=== PATIENT | male | born 1950 | race Caucasian/White ===

== ENCOUNTER 2023-02-23 17:30 | Inpatient (IN) ==
[2023-02-23] MEDS ORDERED: NS 1,000 ML IV 1,000 ML IV ONE (17:39)
[2023-02-23] MEDS ORDERED: ZOFRAN INJ 4 MG VIAL IVP PRN (17:51)
[2023-02-23 21:53] LABS: BASOPHILS # (AUTO) 0.1 X10^3/uL (0.0-0.1); BASOPHILS % (AUTO) 0.7 % (0.2-1.0); EOSINOPHILS # (AUTO) 0.3 x10^3/uL (0.0-0.2); EOSINOPHILS % (AUTO) 2.4 % (0.9-2.9); HEMOGLOBIN 13.7 g/dL (13.5-18.0); LYMPHOCYTES # (AUTO) 3.6 X10^3/uL (1.3-2.9); LYMPHOCYTES % (AUTO) 27.9 % (21.0-51.0); MEAN CORPUSCULAR HEMOGLOBIN 30.9 pg (27.0-34.0); MEAN CORPUSCULAR HGB CONC 34.3 g/dL (33.0-35.0); MEAN CORPUSCULAR VOLUME 90.1 fL (80.0-100.0); MEAN PLATELET VOLUME 9.3 fL (7.4-11.0); MONOCYTES # (AUTO) 1.1 x10^3/uL (0.3-0.8); MONOCYTES % (AUTO) 8.4 % (0.0-13.0); NEUTROPHILS # (AUTO) 7.8 x10^3/uL (2.2-4.8); NEUTROPHILS % (AUTO) 60.6 % (42.0-75.0); PLATELET COUNT 169 X10^3/uL (150.0-450.0); RED BLOOD COUNT 4.44 X10^6/uL (4.7-6.0); RED CELL DISTRIBUTION WIDTH 13.8 % (11.6-16.5); WHITE BLOOD COUNT 12.9 X10^3/uL (3.6-10.0)
[2023-02-23 22:06] LABS: ALANINE AMINOTRANSFERASE 21 Units/L (12-78); ALKALINE PHOSPHATASE 73 Units/L (46-116); ASPARTATE AMINO TRANSFERASE 20 Units/L (15-37); BLOOD UREA NITROGEN 26 mg/dL (7-18); CALCIUM 9.7 mg/dL (8.5-10.1); CARBON DIOXIDE 29.3 mmol/L (21-32); CHLORIDE 100 mmol/L (98-107); CREATININE 2.13 mg/dL (0.70-1.30); GLUCOSE 98 mg/dL (65-99); POTASSIUM 4.1 mmol/L (3.5-5.1); SODIUM 137 mmol/L (136-145); TOTAL PROTEIN 7.1 g/dL (6.4-8.2); eGFR NON BLACK RACES 33 (>60)
[2023-02-23] MEDS ORDERED: NS 1,000 ML IV 1,000 ML ONE ×2 (22:09→23:47)
[2023-02-23] MEDS: MAXIPIME VIAL 1 GRAM 1 G in NS 50 ML IV 50 ML IV SCH (23:30)
[2023-02-24] MEDS: NS 1,000 ML IV 1,000 ML IV SCH (00:42)
[2023-02-24 05:13] LABS: BILIRUBIN,URINE NEGATIVE (NEGATIVE); BLOOD/HEMOGLOBIN,URINE 4+ (NEGATIVE); GLUCOSE, URINE NEGATIVE (NEGATIVE); KETONES,URINE NEGATIVE (NEGATIVE); LEUKOCYTE ESTERASE ,URINE 3+ (NEGATIVE); NITRITES,URINE POSITIVE (NEGATIVE); PROTEIN,URINE 2+ (NEGATIVE); UROBILINOGEN,URINE NORMAL (NORMAL)
[2023-02-24 05:22] LABS: APPEARANCE,URINE HAZY (CLEAR); BACTERIA,URINE 1+ /HPF (NEGATIVE); COLOR,URINE YELLOW (YELLOW); SQUAMOUS EPITHELIAL CELL,UR FEW /HPF (NEGATIVE)
[2023-02-24 05:29] VITALS: BMI 28.3
[2023-02-24 06:05] LABS: BASOPHILS # (AUTO) 0.1 X10^3/uL (0.0-0.1); BASOPHILS % (AUTO) 0.5 % (0.2-1.0); EOSINOPHILS # (AUTO) 0.3 x10^3/uL (0.0-0.2); EOSINOPHILS % (AUTO) 2.5 % (0.9-2.9); HEMATOCRIT 38.3 % (42.0-54.0); HEMOGLOBIN 13.1 g/dL (13.5-18.0); LYMPHOCYTES # (AUTO) 4.3 X10^3/uL (1.3-2.9); LYMPHOCYTES % (AUTO) 37.5 % (21.0-51.0); MEAN CORPUSCULAR HEMOGLOBIN 31.1 pg (27.0-34.0); MEAN CORPUSCULAR HGB CONC 34.2 g/dL (33.0-35.0); MEAN CORPUSCULAR VOLUME 90.9 fL (80.0-100.0); MEAN PLATELET VOLUME 9.2 fL (7.4-11.0); MONOCYTES # (AUTO) 1.1 x10^3/uL (0.3-0.8); MONOCYTES % (AUTO) 10.1 % (0.0-13.0); NEUTROPHILS # (AUTO) 5.7 x10^3/uL (2.2-4.8); NEUTROPHILS % (AUTO) 49.4 % (42.0-75.0); PLATELET COUNT 148 X10^3/uL (150.0-450.0); RED BLOOD COUNT 4.21 X10^6/uL (4.7-6.0); RED CELL DISTRIBUTION WIDTH 13.6 % (11.6-16.5); WHITE BLOOD COUNT 11.4 X10^3/uL (3.6-10.0)
[2023-02-24] MEDS: SYNTHROID 100 mcg TAB PO SCH (06:06)
[2023-02-24 06:27] LABS: ALANINE AMINOTRANSFERASE 17 Units/L (12-78); ALBUMIN 3.5 g/dL (3.4-5.0); ALKALINE PHOSPHATASE 63 Units/L (46-116); ASPARTATE AMINO TRANSFERASE 16 Units/L (15-37); BLOOD UREA NITROGEN 27 mg/dL (7-18); CALCIUM 9.3 mg/dL (8.5-10.1); CARBON DIOXIDE 28.9 mmol/L (21-32); CHLORIDE 105 mmol/L (98-107); CREATININE 1.86 mg/dL (0.70-1.30); GLUCOSE 99 mg/dL (65-99); POTASSIUM 4.3 mmol/L (3.5-5.1); SODIUM 141 mmol/L (136-145); TOTAL PROTEIN 6.4 g/dL (6.4-8.2); eGFR NON BLACK RACES 38 (>60)
[2023-02-24] MEDS ORDERED: TOPROL XL PO SCH (09:00)
[2023-02-24] MEDS ORDERED: ZYLOPRIM PO SCH (09:00)
[2023-02-24] MEDS ORDERED: PAXIL PO SCH (09:00)
[2023-02-24] MEDS ORDERED: PROTONIX TAB 40 MG PO SCH (09:00)
[2023-02-24] MEDS ORDERED: PAROXETINE HCL 37.5 MG PO SCH (09:00)
[2023-02-24] MEDS ORDERED: PATIENT'S HOME MEDICATION (Trospium 20 mg Tablet) PO SCH (09:00)
[2023-02-24] MEDS ORDERED: SYNTHROID 100 mcg TAB PO SCH (09:00)
[2023-02-24] MEDS ORDERED: PATIENT'S HOME MEDICATION PO SCH (09:00)
[2023-02-24] MEDS ORDERED: LIPITOR TAB 40 MG PO SCH (09:00)
[2023-02-24] MEDS: PROTONIX TAB 40 MG PO SCH (09:29)
[2023-02-24] MEDS: ZYLOPRIM PO SCH (09:29)
[2023-02-24] MEDS: LIPITOR TAB 40 MG PO SCH (09:29)
[2023-02-24] MEDS: MAXIPIME VIAL 1 GRAM 1 G in NS 50 ML IV 50 ML IV SCH ×2 (09:29→21:10)
[2023-02-24] MEDS: TOPROL XL PO SCH (09:29)
[2023-02-24] MEDS: PATIENT'S HOME MEDICATION PO SCH ×3 (09:30→21:10)
[2023-02-24] MEDS: LOVENOX INJ 40 MG SYR SC SCH (09:33)
--- NOTE | 2023-02-24 18:06 | DR.H&P ---
H&P - History & Physical for Day of: H&P Date: 02/23/23 - Chief Complaint Chief Complaint: UTI - History of Present Illness History of Present Illness: PT IS 72 WM, DIRECT ADMIT PER DR DELA CRUZ FOR MULTI- DRUG RESISTANT UTI. PT REPORTS PMH OF BLADDER CANCER IN REMISSION, RENAL CA WITH RIGHT NEPHRECTOMY AND PROTASTE CANCER WITH PROTATECTOMY. PT'S HOME MEDICATION HAVE BEEN REVIEWED. PLAN TO OBTAIN OUTPT URINE CULTURE AND REPEAT UC ON ADMISSIO N. - Past Medical History Additional Medical History: BLADDER CANCER. PROSTATE CANCER. RENAL CANCER - Past Surgical History Surgical History: Abdominal Surgery, Appendectomy Additional Surgical History: RIGHT NEPHRECTOMY - Family History Family Medical History: Diabetes Mellitus, Heart Failure - Social History Does patient currently use any type of tobacco product: No Have you used tobacco products in the last 12 months: No Type of Tobacco Use: Cigarettes How many years tobacco product used: 13 Does any household member use tobacco: No Alcohol Use: None Drug Use: Prescription Drugs - Review of Systems Constitutional: Malaise Eyes: No Symptoms Reported ENT: No Symptoms Reported Gastrointestinal: No Symptoms Reported Genitourinary: Dysuria, Frequency Musculoskeletal: Back Pain Skin: No Symptoms Reported Neurological: No Symptoms Reported - Physical Exam Vital Signs: Vital Signs Temperature 97.6 F Pulse Rate [Right Brachial] 59 Respiratory Rate 18 Blood Pressure [Left Arm] 129/60 O2 Sat by Pulse Oximetry 98 Oriented: Normal Eyes: Normal Ear: Normal Nose: Normal Throat: Normal Respiratory: Clear Throughout Cardiovascular: Normal. negative: Edema : Normal Auscultation: Bowel Sounds: Normal Palpation: Normal Tenderness: Normal, Suprapubic, Mild Skin: Decreased Turgur Musculoskeletal: Normal Psychiatric: Normal Mood Description: Calm Speech Pattern: Clear, Appropriate - Assessment/Plan (1) Drug (multiple) resistant infection Status: Acute Plan: ADMIT, BLOOD AND URINE CULTLURE ON ADMISSION. VERIFY HOME MEDICATION. BP CONTROL. GENTLE IV HYDRATION. CEFEPIME IV (2) Urinary tract infection Status: Acute (3) Hypertension Status: Acute (4) Hypothyroid Status: Acute - Allergies Allergies/Adverse Reactions: Allergies Allergy/AdvReac Type Severity Reaction Status Date / Time ampicillin Allergy Verified 02/23/23 20:56 ciprofloxacin [From Cipro] Allergy Verified 02/23/23 20:56 doxycycline Allergy Verified 02/23/23 20:56 oxycodone Allergy Verified 02/23/23 20:56 sertraline [From Zoloft] Allergy Verified 02/23/23 20:56 Sulfa (Sulfonamide Allergy Verified 02/23/23 20:56 Antibiotics) - Medications Home Medications: Home Medications Medication Instructions Recorded Confirmed allopurinol 100 mg tablet 100 mg PO DAILY GOUT prevention 02/24/23 02/24/23 atorvastatin 40 mg tablet 40 mg PO DAILY 02/24/23 02/24/23 diclofenac sodium 50 mg 50 mg PO BID 02/24/23 02/24/23 tablet,delayed release levothyroxine 100 mcg tablet 100 mcg PO DAILY 02/24/23 02/24/23 metoprolol succinate 50 mg 50 mg PO DAILY 02/24/23 02/24/23 tablet,extended release 24 hr pantoprazole 40 mg tablet,delayed 40 mg PO DAILY 02/24/23 02/24/23 release paroxetine HCl 37.5 mg 37.5 mg PO QDAY 02/24/23 02/24/23 tablet,extended release 24 hr trospium 20 mg tablet 20 mg PO BID 02/24/23 02/24/23
[2023-02-25] MEDS: NS 1,000 ML IV 1,000 ML IV SCH ×2 (01:08→21:15)
[2023-02-25] MEDS ORDERED: TYLENOL 325 MG TAB PO PRN (04:50)
[2023-02-25] MEDS: SYNTHROID 100 mcg TAB PO SCH (06:14)
[2023-02-25] MEDS ORDERED: ZANAFLEX PO PRN (08:30)
[2023-02-25] MEDS ORDERED: ZANAFLEX ONE (08:33)
[2023-02-25] MEDS ORDERED: NORCO 5/325 MG TAB ONE (08:33)
[2023-02-25] MEDS: TOPROL XL PO SCH (08:39)
[2023-02-25] MEDS: PROTONIX TAB 40 MG PO SCH (08:40)
[2023-02-25] MEDS: LIPITOR TAB 40 MG PO SCH (08:40)
[2023-02-25] MEDS: ZYLOPRIM PO SCH (08:41)
[2023-02-25] MEDS: PATIENT'S HOME MEDICATION PO SCH ×3 (08:41→21:02)
[2023-02-25] MEDS: NORCO 5/325 MG TAB PO PRN ×3 (08:42→22:00)
[2023-02-25] MEDS: LOVENOX INJ 40 MG SYR SC SCH (08:43)
[2023-02-25 09:06] LABS: BASOPHILS # (AUTO) 0.1 X10^3/uL (0.0-0.1); BASOPHILS % (AUTO) 0.6 % (0.2-1.0); EOSINOPHILS # (AUTO) 0.3 x10^3/uL (0.0-0.2); EOSINOPHILS % (AUTO) 1.6 % (0.9-2.9); HEMATOCRIT 39.9 % (42.0-54.0); HEMOGLOBIN 13.4 g/dL (13.5-18.0); LYMPHOCYTES # (AUTO) 3.7 X10^3/uL (1.3-2.9); LYMPHOCYTES % (AUTO) 23.7 % (21.0-51.0); MEAN CORPUSCULAR HEMOGLOBIN 30.3 pg (27.0-34.0); MEAN CORPUSCULAR HGB CONC 33.5 g/dL (33.0-35.0); MEAN CORPUSCULAR VOLUME 90.5 fL (80.0-100.0); MEAN PLATELET VOLUME 9.2 fL (7.4-11.0); MONOCYTES # (AUTO) 1.5 x10^3/uL (0.3-0.8); MONOCYTES % (AUTO) 9.4 % (0.0-13.0); NEUTROPHILS # (AUTO) 10.2 x10^3/uL (2.2-4.8); NEUTROPHILS % (AUTO) 64.7 % (42.0-75.0); PLATELET COUNT 152 X10^3/uL (150.0-450.0); RED BLOOD COUNT 4.41 X10^6/uL (4.7-6.0); RED CELL DISTRIBUTION WIDTH 13.9 % (11.6-16.5); WHITE BLOOD COUNT 15.8 X10^3/uL (3.6-10.0)
[2023-02-25 09:24] LABS: ALANINE AMINOTRANSFERASE 20 Units/L (12-78); ALBUMIN 3.7 g/dL (3.4-5.0); ALKALINE PHOSPHATASE 70 Units/L (46-116); ASPARTATE AMINO TRANSFERASE 20 Units/L (15-37); BLOOD UREA NITROGEN 29 mg/dL (7-18); CALCIUM 9.5 mg/dL (8.5-10.1); CARBON DIOXIDE 26.8 mmol/L (21-32); CHLORIDE 104 mmol/L (98-107); CREATININE 2.03 mg/dL (0.70-1.30); GLUCOSE 104 mg/dL (65-99); POTASSIUM 4.7 mmol/L (3.5-5.1); SODIUM 140 mmol/L (136-145); TOTAL PROTEIN 6.7 g/dL (6.4-8.2); eGFR NON BLACK RACES 34 (>60)
[2023-02-25] MEDS: MAXIPIME VIAL 1 GRAM 1 G in NS 50 ML IV 50 ML IV SCH ×3 (10:41→21:01)
--- NOTE | 2023-02-25 17:14 | PCM.PROG ---
Progress Note - Progress Note for Day of Date of Exam: 02/24/23 - Subjective Subjective: PT IS 72 WM, CURRENTLY BEING TREATED FOR MULTI-DRUG RESISTANT UTI. PT IS CURRENTLY ON CEFEPIME. CULTURES OBTAINED ON ADMISSION. HE HAVE RESUMED PTS HOME MEDICATION AND WILL CONTINUE IV HYDRATION WITH NS AT 20CC/HR AND REPEAT AM LABS - Past Medical Family Social History Past Med/Fam/Surg Hx: No changes since H&P Allergies: Allergies ampicillin Allergy (Verified 02/23/23 20:56) ciprofloxacin [From Cipro] Allergy (Verified 02/23/23 20:56) doxycycline Allergy (Verified 02/23/23 20:56) oxycodone Allergy (Verified 02/23/23 20:56) sertraline [From Zoloft] Allergy (Verified 02/23/23 20:56) Sulfa (Sulfonamide Antibiotics) Allergy (Verified 02/23/23 20:56) - Review of Systems ROS: No change since H&P - Vital Signs and I&O's Vital Signs: Vital Signs Temperature 98.6 F Temperature 98.3 F Pulse Rate [Right Brachial] 65 Pulse Rate [Right Brachial] 62 Respiratory Rate 18 Respiratory Rate 18 Respiratory Rate 18 Respiratory Rate 18 Blood Pressure [Left Arm] 112/55 Blood Pressure [Left Arm] 88/52 O2 Sat by Pulse Oximetry 94 O2 Sat by Pulse Oximetry 98 Intake and Output: Intake & Output 02/23/23 02/24/23 02/25/23 02/26/23 11:59 11:59 11:59 11:59 Intake Total 500 / 500 1265 / 1265 360 / 360 Balance 500 / 500 1265 / 1265 360 / 360 - Physical Exam Oriented: Normal Eyes: Normal Ear: Normal Nose: Normal Throat: Normal Respiratory: Normal Cardiovascular: Normal. negative: Edema : Normal Auscultation: Bowel Sounds: Normal Tenderness: Normal, Suprapubic, Mild Skin: Decreased Turgur Musculoskeletal: Normal Psychiatric: Normal Mood Description: Calm Speech Pattern: Clear, Appropriate - Laboratory and Diagnostics Result Diagrams: 02/25/23 08:46 02/25/23 08:46 Labs: 02/23/23 21:35 Blood Blood Culture - Preliminary 02/23/23 21:20 Blood Blood Culture - Preliminary 02/24/23 05:03 Urine,Clean Catch Urine Culture - Preliminary Laboratory WBC 15.8 X10^3/uL (3.6-10.0) H 02/25/23 08:46 RBC 4.41 X10^6/uL (4.7-6.0) L 02/25/23 08:46 Hgb 13.4 g/dL (13.5-18.0) L 02/25/23 08:46 Hct 39.9 % (42.0-54.0) L 02/25/23 08:46 MCV 90.5 fL (80.0-100.0) 02/25/23 08:46 MCH 30.3 pg (27.0-34.0) 02/25/23 08:46 MCHC 33.5 g/dL (33.0-35.0) 02/25/23 08:46 RDW 13.9 % (11.6-16.5) 02/25/23 08:46 Plt Count 152 X10^3/uL (150.0-450.0) 02/25/23 08:46 MPV 9.2 fL (7.4-11.0) 02/25/23 08:46 Neut % (Auto) 64.7 % (42.0-75.0) 02/25/23 08:46 Lymph % (Auto) 23.7 % (21.0-51.0) 02/25/23 08:46 [place] % (Auto) 9.4 % (0.0-13.0) 02/25/23 08:46 Eos % (Auto) 1.6 % (0.9-2.9) 02/25/23 08:46 Baso % (Auto) 0.6 % (0.2-1.0) 02/25/23 08:46 Neut # (Auto) 10.2 x10^3/uL (2.2-4.8) H 02/25/23 08:46 Lymph # (Auto) 3.7 X10^3/uL (1.3-2.9) H 02/25/23 08:46 [place] # (Auto) 1.5 x10^3/uL (0.3-0.8) H 02/25/23 08:46 Eos # (Auto) 0.3 x10^3/uL (0.0-0.2) H 02/25/23 08:46 Baso # (Auto) 0.1 X10^3/uL (0.0-0.1) 02/25/23 08:46 Absolute Nucleated RBC 0.1 /100WBC 02/25/23 08:46 Sodium 140 mmol/L (136-145) 02/25/23 08:46 Corrected Sodium TNP 02/25/23 08:46 Potassium 4.7 mmol/L (3.5-5.1) 02/25/23 08:46 Chloride 104 mmol/L (98-107) 02/25/23 08:46 Carbon Dioxide 26.8 mmol/L (21-32) 02/25/23 08:46 BUN 29 mg/dL (7-18) H 02/25/23 08:46 Creatinine 2.03 mg/dL (0.70-1.30) H 02/25/23 08:46 Est GFR (MDRD) Af Amer 42 (>60) L 02/25/23 08:46 Est GFR (MDRD) Non-Af 34 (>60) L 02/25/23 08:46 Glucose 104 mg/dL (65-99) H 02/25/23 08:46 Uric Acid 6.0 mg/dL (3.5-7.2) 02/25/23 08:46 Calcium 9.5 mg/dL (8.5-10.1) 02/25/23 08:46 Corrected Calcium TNP 02/25/23 08:46 Total Bilirubin 0.40 mg/dL (0.2-1.0) 02/25/23 08:46 AST 20 Units/L (15-37) 02/25/23 08:46 ALT 20 Units/L (12-78) 02/25/23 08:46 Alkaline Phosphatase 70 Units/L (46-116) 02/25/23 08:46 Total Protein 6.7 g/dL (6.4-8.2) 02/25/23 08:46 Albumin 3.7 g/dL (3.4-5.0) 02/25/23 08:46 Globulin 3.0 g/dL (2.5-4.5) 02/25/23 08:46 Albumin/Globulin Ratio 1.2 Ratio (1.1-2.1) 02/25/23 08:46 Specimen Type Clean catch urine 02/24/23 05:03 Urine Color Yellow (YELLOW) 02/24/23 05:03 Urine Appearance Hazy (CLEAR) 02/24/23 05:03 Urine pH 6.0 (5.0 - 8.0) 02/24/23 05:03 Ur Specific [place] 1.015 (1.000-1.030) 02/24/23 05:03 Urine Protein 2+ (NEGATIVE) 02/24/23 05:03 Urine Glucose (UA) Negative (NEGATIVE) 02/24/23 05:03 Urine Ketones Negative (NEGATIVE) 02/24/23 05:03 Urine Blood 4+ (NEGATIVE) 02/24/23 05:03 Urine Nitrite Positive (NEGATIVE) 02/24/23 05:03 Urine Bilirubin Negative (NEGATIVE) 02/24/23 05:03 Urine Urobilinogen Normal (NORMAL) 02/24/23 05:03 Ur Leukocyte Esterase 3+ (NEGATIVE) 02/24/23 05:03 Urine RBC 5-10 /HPF (0-3) A 02/24/23 05:03 Urine WBC Tntc /HPF (0-5) A 02/24/23 05:03 Ur Squamous Epith Cells Few /HPF (NEGATIVE) 02/24/23 05:03 Urine Bacteria 1+ /HPF (NEGATIVE) 02/24/23 05:03 Urine Mucus Few /HPF (NEGATIVE) 02/24/23 05:03 Ur Culture Indicated? Yes/culture set up 02/24/23 05:03 - Plan (1) Drug (multiple) resistant infection Status: Acute Plan: BLOOD AND URINE CULTLURE ON ADMISSION. VERIFY HOME MEDICATION. BP CONTROL. GENTLE IV HYDRATION. CEFEPIME IV (2) Urinary tract infection Status: Acute (3) Hypertension Status: Acute (4) Hypothyroid Status: Acute
--- NOTE | 2023-02-25 17:34 | PCM.PROG ---
Progress Note - Progress Note for Day of Date of Exam: 02/25/23 - Subjective Subjective: PT IS 72 WM, CURRENTLY BEING TREATED FOR MULTI-DRUG RESISTANT UTI. PT IS CURRENTLY ON CEFEPIME. CULTURES OBTAINED ON ADMISSION. PT'S RENAL FUNCTION DECREASED ON AM LABS. PLAN TO INCREASE NS TO 75C/HR WITH REPEAT AM CMP WITH STRICT I&OS. PT CO SEVERE LEFT KNEE PAIN. REPORTS HE BUMPED IT IN HIS SHOP THE DAY BEFORE ADMISSION. PT HAD DIFFUSE TENDERNESS TO LEFT KNEE WITHOUT REDNESS AND MILD JOINT EFFUSION. URIC ACID LEVEL ADDED - Past Medical Family Social History Past Med/Fam/Surg Hx: No changes since H&P Allergies: Allergies ampicillin Allergy (Verified 02/23/23 20:56) ciprofloxacin [From Cipro] Allergy (Verified 02/23/23 20:56) doxycycline Allergy (Verified 02/23/23 20:56) oxycodone Allergy (Verified 02/23/23 20:56) sertraline [From Zoloft] Allergy (Verified 02/23/23 20:56) Sulfa (Sulfonamide Antibiotics) Allergy (Verified 02/23/23 20:56) - Review of Systems ROS: No change since H&P - Vital Signs and I&O's Vital Signs: Vital Signs Temperature 98.6 F Temperature 98.3 F Pulse Rate [Right Brachial] 65 Pulse Rate [Right Brachial] 62 Respiratory Rate 18 Respiratory Rate 18 Respiratory Rate 18 Respiratory Rate 18 Blood Pressure [Left Arm] 112/55 Blood Pressure [Left Arm] 88/52 O2 Sat by Pulse Oximetry 94 O2 Sat by Pulse Oximetry 98 Intake and Output: Intake & Output 02/23/23 02/24/23 02/25/23 02/26/23 11:59 11:59 11:59 11:59 Intake Total 500 / 500 1265 / 1265 360 / 360 Balance 500 / 500 1265 / 1265 360 / 360 - Physical Exam Oriented: Normal Eyes: Normal Ear: Normal Nose: Normal Throat: Normal Respiratory: Normal Cardiovascular: Normal. negative: Edema : Normal Auscultation: Bowel Sounds: Normal Tenderness: Normal, Suprapubic, Mild Skin: Decreased Turgur Musculoskeletal: Normal Psychiatric: Normal Mood Description: Calm Speech Pattern: Clear, Appropriate - Laboratory and Diagnostics Result Diagrams: 02/25/23 08:46 02/25/23 08:46 Labs: 02/23/23 21:35 Blood Blood Culture - Preliminary 02/23/23 21:20 Blood Blood Culture - Preliminary 02/24/23 05:03 Urine,Clean Catch Urine Culture - Preliminary Laboratory WBC 15.8 X10^3/uL (3.6-10.0) H 02/25/23 08:46 RBC 4.41 X10^6/uL (4.7-6.0) L 02/25/23 08:46 Hgb 13.4 g/dL (13.5-18.0) L 02/25/23 08:46 Hct 39.9 % (42.0-54.0) L 02/25/23 08:46 MCV 90.5 fL (80.0-100.0) 02/25/23 08:46 MCH 30.3 pg (27.0-34.0) 02/25/23 08:46 MCHC 33.5 g/dL (33.0-35.0) 02/25/23 08:46 RDW 13.9 % (11.6-16.5) 02/25/23 08:46 Plt Count 152 X10^3/uL (150.0-450.0) 02/25/23 08:46 MPV 9.2 fL (7.4-11.0) 02/25/23 08:46 Neut % (Auto) 64.7 % (42.0-75.0) 02/25/23 08:46 Lymph % (Auto) 23.7 % (21.0-51.0) 02/25/23 08:46 [place] % (Auto) 9.4 % (0.0-13.0) 02/25/23 08:46 Eos % (Auto) 1.6 % (0.9-2.9) 02/25/23 08:46 Baso % (Auto) 0.6 % (0.2-1.0) 02/25/23 08:46 Neut # (Auto) 10.2 x10^3/uL (2.2-4.8) H 02/25/23 08:46 Lymph # (Auto) 3.7 X10^3/uL (1.3-2.9) H 02/25/23 08:46 [place] # (Auto) 1.5 x10^3/uL (0.3-0.8) H 02/25/23 08:46 Eos # (Auto) 0.3 x10^3/uL (0.0-0.2) H 02/25/23 08:46 Baso # (Auto) 0.1 X10^3/uL (0.0-0.1) 02/25/23 08:46 Absolute Nucleated RBC 0.1 /100WBC 02/25/23 08:46 Sodium 140 mmol/L (136-145) 02/25/23 08:46 Corrected Sodium TNP 02/25/23 08:46 Potassium 4.7 mmol/L (3.5-5.1) 02/25/23 08:46 Chloride 104 mmol/L (98-107) 02/25/23 08:46 Carbon Dioxide 26.8 mmol/L (21-32) 02/25/23 08:46 BUN 29 mg/dL (7-18) H 02/25/23 08:46 Creatinine 2.03 mg/dL (0.70-1.30) H 02/25/23 08:46 Est GFR (MDRD) Af Amer 42 (>60) L 02/25/23 08:46 Est GFR (MDRD) Non-Af 34 (>60) L 02/25/23 08:46 Glucose 104 mg/dL (65-99) H 02/25/23 08:46 Uric Acid 6.0 mg/dL (3.5-7.2) 02/25/23 08:46 Calcium 9.5 mg/dL (8.5-10.1) 02/25/23 08:46 Corrected Calcium TNP 02/25/23 08:46 Total Bilirubin 0.40 mg/dL (0.2-1.0) 02/25/23 08:46 AST 20 Units/L (15-37) 02/25/23 08:46 ALT 20 Units/L (12-78) 02/25/23 08:46 Alkaline Phosphatase 70 Units/L (46-116) 02/25/23 08:46 Total Protein 6.7 g/dL (6.4-8.2) 02/25/23 08:46 Albumin 3.7 g/dL (3.4-5.0) 02/25/23 08:46 Globulin 3.0 g/dL (2.5-4.5) 02/25/23 08:46 Albumin/Globulin Ratio 1.2 Ratio (1.1-2.1) 02/25/23 08:46 Specimen Type Clean catch urine 02/24/23 05:03 Urine Color Yellow (YELLOW) 02/24/23 05:03 Urine Appearance Hazy (CLEAR) 02/24/23 05:03 Urine pH 6.0 (5.0 - 8.0) 02/24/23 05:03 Ur Specific [place] 1.015 (1.000-1.030) 02/24/23 05:03 Urine Protein 2+ (NEGATIVE) 02/24/23 05:03 Urine Glucose (UA) Negative (NEGATIVE) 02/24/23 05:03 Urine Ketones Negative (NEGATIVE) 02/24/23 05:03 Urine Blood 4+ (NEGATIVE) 02/24/23 05:03 Urine Nitrite Positive (NEGATIVE) 02/24/23 05:03 Urine Bilirubin Negative (NEGATIVE) 02/24/23 05:03 Urine Urobilinogen Normal (NORMAL) 02/24/23 05:03 Ur Leukocyte Esterase 3+ (NEGATIVE) 02/24/23 05:03 Urine RBC 5-10 /HPF (0-3) A 02/24/23 05:03 Urine WBC Tntc /HPF (0-5) A 02/24/23 05:03 Ur Squamous Epith Cells Few /HPF (NEGATIVE) 02/24/23 05:03 Urine Bacteria 1+ /HPF (NEGATIVE) 02/24/23 05:03 Urine Mucus Few /HPF (NEGATIVE) 02/24/23 05:03 Ur Culture Indicated? Yes/culture set up 02/24/23 05:03 - Plan (1) Drug (multiple) resistant infection Status: Acute Plan: BLOOD AND URINE CULTLURE ON ADMISSION. VERIFY HOME MEDICATION. BP CONTROL. GENTLE IV HYDRATION. CEFEPIME IV (2) Urinary tract infection Status: Acute (3) Hypertension Status: Acute (4) Hypothyroid Status: Acute (5) Joint pain Status: Acute
[2023-02-26] MEDS: NS 1,000 ML IV 1,000 ML IV SCH ×2 (00:07→13:28)
[2023-02-26] MEDS: SYNTHROID 100 mcg TAB PO SCH (05:30)
[2023-02-26 05:46] LABS: BASOPHILS # (AUTO) 0.1 X10^3/uL (0.0-0.1); BASOPHILS % (AUTO) 0.8 % (0.2-1.0); EOSINOPHILS # (AUTO) 0.3 x10^3/uL (0.0-0.2); EOSINOPHILS % (AUTO) 2.3 % (0.9-2.9); HEMATOCRIT 37.2 % (42.0-54.0); HEMOGLOBIN 12.6 g/dL (13.5-18.0); LYMPHOCYTES # (AUTO) 3.2 X10^3/uL (1.3-2.9); LYMPHOCYTES % (AUTO) 24.6 % (21.0-51.0); MEAN CORPUSCULAR HEMOGLOBIN 31.1 pg (27.0-34.0); MEAN CORPUSCULAR HGB CONC 33.8 g/dL (33.0-35.0); MEAN CORPUSCULAR VOLUME 91.8 fL (80.0-100.0); MEAN PLATELET VOLUME 9.2 fL (7.4-11.0); MONOCYTES # (AUTO) 1.5 x10^3/uL (0.3-0.8); MONOCYTES % (AUTO) 11.3 % (0.0-13.0); NEUTROPHILS # (AUTO) 7.8 x10^3/uL (2.2-4.8); PLATELET COUNT 138 X10^3/uL (150.0-450.0); RED BLOOD COUNT 4.05 X10^6/uL (4.7-6.0); RED CELL DISTRIBUTION WIDTH 14.2 % (11.6-16.5); WHITE BLOOD COUNT 12.8 X10^3/uL (3.6-10.0)
[2023-02-26 05:56] LABS: ALANINE AMINOTRANSFERASE 16 Units/L (12-78); ALBUMIN 3.2 g/dL (3.4-5.0); ALKALINE PHOSPHATASE 59 Units/L (46-116); ASPARTATE AMINO TRANSFERASE 17 Units/L (15-37); BLOOD UREA NITROGEN 26 mg/dL (7-18); CALCIUM 9.1 mg/dL (8.5-10.1); CARBON DIOXIDE 27.1 mmol/L (21-32); CHLORIDE 105 mmol/L (98-107); COR CA(FOR HYPOALB) 9.7 mg/dL (8.5-10.1); CREATININE 1.68 mg/dL (0.70-1.30); GLUCOSE 108 mg/dL (65-99); POTASSIUM 4.8 mmol/L (3.5-5.1); SODIUM 140 mmol/L (136-145); TOTAL PROTEIN 6.3 g/dL (6.4-8.2); eGFR NON BLACK RACES 43 (>60)
[2023-02-26] MEDS: NORCO 5/325 MG TAB PO PRN ×2 (07:11→13:28)
--- NOTE | 2023-02-26 08:06 | RAD ---
HISTORYLEFT KNEE PAINSTUDYX-ray left knee three viewsCOMPARISONNoneFINDINGSMild osteoarthritic changes. Suprapatellar joint effusion is seen. No fracture or dislocation is seen. There may be a few calcified loose bodies in the knee. There is a faint rounded calcification in the popliteal fossa.IMPRESSIONJoint effusion and mild osteoarthritic changes. There may be a few calcified loose bodies.Electronically signed by: Jay Holbrook (Feb 26, 2023 07:58:20)
[2023-02-26] MEDS: PROTONIX TAB 40 MG PO SCH (09:03)
[2023-02-26] MEDS: LIPITOR TAB 40 MG PO SCH (09:03)
[2023-02-26] MEDS: MAXIPIME VIAL 1 GRAM 1 G in NS 50 ML IV 50 ML IV SCH ×2 (09:03→21:02)
[2023-02-26] MEDS: TOPROL XL PO SCH (09:03)
[2023-02-26] MEDS: ZYLOPRIM PO SCH (09:03)
[2023-02-26] MEDS: PATIENT'S HOME MEDICATION PO SCH ×3 (09:04→21:02)
[2023-02-26] MEDS: LOVENOX INJ 40 MG SYR SC SCH (09:04)
--- NOTE | 2023-02-26 17:49 | PCM.PROG ---
Progress Note - Subjective Subjective: PT IS 72 WM, CURRENTLY BEING TREATED FOR MULTI-DRUG RESISTANT UTI. PT IS CURRENTLY ON CEFEPIME. CULTURES OBTAINED ON ADMISSION. PT'S RENAL FUNCTION DECREASED ON AM LABS. PLAN TO INCREASE NS TO 75C/HR WITH REPEAT AM CMP WITH STRICT I&OS. PT CO SEVERE LEFT KNEE PAIN. REPORTS HE BUMPED IT IN HIS SHOP THE DAY BEFORE ADMISSION. PT HAD DIFFUSE TENDERNESS TO LEFT KNEE WITHOUT REDNESS AND MILD JOINT EFFUSION. URIC ACID LEVEL WAS NORMAL AND XRAY REVEALED OA CHANGES. RESULTS REVIEWED WITH PT. RECOMMEND FU WITH ORTHO ON OUTPT BASIS. - Past Medical Family Social History Past Med/Fam/Surg Hx: No changes since H&P Allergies: Allergies ampicillin Allergy (Verified 02/23/23 20:56) ciprofloxacin [From Cipro] Allergy (Verified 02/23/23 20:56) doxycycline Allergy (Verified 02/23/23 20:56) oxycodone Allergy (Verified 02/23/23 20:56) sertraline [From Zoloft] Allergy (Verified 02/23/23 20:56) Sulfa (Sulfonamide Antibiotics) Allergy (Verified 02/23/23 20:56) - Review of Systems ROS: No change since H&P - Vital Signs and I&O's Vital Signs: Vital Signs Temperature 97.8 F Temperature 98.2 F Pulse Rate [Right Brachial] 75 Pulse Rate [Right Brachial] 86 Respiratory Rate 20 Respiratory Rate 20 Respiratory Rate 20 Blood Pressure [Left Arm] 117/57 Blood Pressure [Left Arm] 127/60 O2 Sat by Pulse Oximetry 95 O2 Sat by Pulse Oximetry 93 Intake and Output: Intake & Output 02/24/23 02/25/23 02/26/23 02/27/23 11:59 11:59 11:59 11:59 Intake Total 500 / 500 1265 / 1265 1618 / 1618 340 / 340 Output Total 700 / 700 950 / 950 Balance 500 / 500 1265 / 1265 918 / 918 -610 / -610 - Physical Exam Oriented: Normal Eyes: Normal Ear: Normal Nose: Normal Throat: Normal Respiratory: Normal Cardiovascular: Normal. negative: Edema : Normal Auscultation: Bowel Sounds: Normal Tenderness: Normal, Suprapubic, Mild Skin: Decreased Turgur Musculoskeletal: Left, Knee, Tender Psychiatric: Normal Mood Description: Calm Speech Pattern: Clear, Appropriate - Laboratory and Diagnostics Result Diagrams: 02/26/23 05:20 02/26/23 05:20 Labs: 02/24/23 05:03 Urine,Clean Catch Urine Culture - Final Serratia Marcescens 02/23/23 21:35 Blood Blood Culture - Preliminary 02/23/23 21:20 Blood Blood Culture - Preliminary Laboratory WBC 12.8 X10^3/uL (3.6-10.0) H 02/26/23 05:20 RBC 4.05 X10^6/uL (4.7-6.0) L 02/26/23 05:20 Hgb 12.6 g/dL (13.5-18.0) L 02/26/23 05:20 Hct 37.2 % (42.0-54.0) L 02/26/23 05:20 MCV 91.8 fL (80.0-100.0) 02/26/23 05:20 MCH 31.1 pg (27.0-34.0) 02/26/23 05:20 MCHC 33.8 g/dL (33.0-35.0) 02/26/23 05:20 RDW 14.2 % (11.6-16.5) 02/26/23 05:20 Plt Count 138 X10^3/uL (150.0-450.0) L 02/26/23 05:20 MPV 9.2 fL (7.4-11.0) 02/26/23 05:20 Neut % (Auto) 61.0 % (42.0-75.0) 02/26/23 05:20 Lymph % (Auto) 24.6 % (21.0-51.0) 02/26/23 05:20 [place] % (Auto) 11.3 % (0.0-13.0) 02/26/23 05:20 Eos % (Auto) 2.3 % (0.9-2.9) 02/26/23 05:20 Baso % (Auto) 0.8 % (0.2-1.0) 02/26/23 05:20 Neut # (Auto) 7.8 x10^3/uL (2.2-4.8) H 02/26/23 05:20 Lymph # (Auto) 3.2 X10^3/uL (1.3-2.9) H 02/26/23 05:20 [place] # (Auto) 1.5 x10^3/uL (0.3-0.8) H 02/26/23 05:20 Eos # (Auto) 0.3 x10^3/uL (0.0-0.2) H 02/26/23 05:20 Baso # (Auto) 0.1 X10^3/uL (0.0-0.1) 02/26/23 05:20 Absolute Nucleated RBC 0.0 /100WBC 02/26/23 05:20 Sodium 140 mmol/L (136-145) 02/26/23 05:20 Corrected Sodium TNP 02/26/23 05:20 Potassium 4.8 mmol/L (3.5-5.1) 02/26/23 05:20 Chloride 105 mmol/L (98-107) 02/26/23 05:20 Carbon Dioxide 27.1 mmol/L (21-32) 02/26/23 05:20 BUN 26 mg/dL (7-18) H 02/26/23 05:20 Creatinine 1.68 mg/dL (0.70-1.30) H 02/26/23 05:20 Est GFR (MDRD) Af Amer 52 (>60) L 02/26/23 05:20 Est GFR (MDRD) Non-Af 43 (>60) L 02/26/23 05:20 Glucose 108 mg/dL (65-99) H 02/26/23 05:20 Uric Acid 6.0 mg/dL (3.5-7.2) 02/25/23 08:46 Calcium 9.1 mg/dL (8.5-10.1) 02/26/23 05:20 Corrected Calcium 9.7 mg/dL (8.5-10.1) 02/26/23 05:20 Total Bilirubin 0.60 mg/dL (0.2-1.0) 02/26/23 05:20 AST 17 Units/L (15-37) 02/26/23 05:20 ALT 16 Units/L (12-78) 02/26/23 05:20 Alkaline Phosphatase 59 Units/L (46-116) 02/26/23 05:20 Total Protein 6.3 g/dL (6.4-8.2) L 02/26/23 05:20 Albumin 3.2 g/dL (3.4-5.0) L 02/26/23 05:20 Globulin 3.1 g/dL (2.5-4.5) 02/26/23 05:20 Albumin/Globulin Ratio 1.0 Ratio (1.1-2.1) L 02/26/23 05:20 Specimen Type Clean catch urine 02/24/23 05:03 Urine Color Yellow (YELLOW) 02/24/23 05:03 Urine Appearance Hazy (CLEAR) 02/24/23 05:03 Urine pH 6.0 (5.0 - 8.0) 02/24/23 05:03 Ur Specific [place] 1.015 (1.000-1.030) 02/24/23 05:03 Urine Protein 2+ (NEGATIVE) 02/24/23 05:03 Urine Glucose (UA) Negative (NEGATIVE) 02/24/23 05:03 Urine Ketones Negative (NEGATIVE) 02/24/23 05:03 Urine Blood 4+ (NEGATIVE) 02/24/23 05:03 Urine Nitrite Positive (NEGATIVE) 02/24/23 05:03 Urine Bilirubin Negative (NEGATIVE) 02/24/23 05:03 Urine Urobilinogen Normal (NORMAL) 02/24/23 05:03 Ur Leukocyte Esterase 3+ (NEGATIVE) 02/24/23 05:03 Urine RBC 5-10 /HPF (0-3) A 02/24/23 05:03 Urine WBC Tntc /HPF (0-5) A 02/24/23 05:03 Ur Squamous Epith Cells Few /HPF (NEGATIVE) 02/24/23 05:03 Urine Bacteria 1+ /HPF (NEGATIVE) 02/24/23 05:03 Urine Mucus Few /HPF (NEGATIVE) 02/24/23 05:03 Ur Culture Indicated? Yes/culture set up 02/24/23 05:03 - Plan (1) Drug (multiple) resistant infection Status: Acute Plan: BLOOD AND URINE CULTLURE ON ADMISSION. VERIFY HOME MEDICATION. BP CONTROL. GENTLE IV HYDRATION. CEFEPIME IV (2) Urinary tract infection Status: Acute (3) Hypertension Status: Acute (4) Hypothyroid Status: Acute (5) Joint pain Status: Acute
[2023-02-27] MEDS: NS 1,000 ML IV 1,000 ML IV SCH ×2 (00:12→02:27)
[2023-02-27] MEDS: SYNTHROID 100 mcg TAB PO SCH (05:41)
[2023-02-27 05:49] LABS: BASOPHILS # (AUTO) 0.1 X10^3/uL (0.0-0.1); BASOPHILS % (AUTO) 0.7 % (0.2-1.0); EOSINOPHILS # (AUTO) 0.4 x10^3/uL (0.0-0.2); EOSINOPHILS % (AUTO) 3.1 % (0.9-2.9); HEMATOCRIT 35.7 % (42.0-54.0); HEMOGLOBIN 12.2 g/dL (13.5-18.0); LYMPHOCYTES # (AUTO) 3.1 X10^3/uL (1.3-2.9); MEAN CORPUSCULAR HGB CONC 34.1 g/dL (33.0-35.0); MEAN CORPUSCULAR VOLUME 90.9 fL (80.0-100.0); MEAN PLATELET VOLUME 9.2 fL (7.4-11.0); MONOCYTES # (AUTO) 1.4 x10^3/uL (0.3-0.8); MONOCYTES % (AUTO) 11.6 % (0.0-13.0); NEUTROPHILS # (AUTO) 7.1 x10^3/uL (2.2-4.8); NEUTROPHILS % (AUTO) 58.6 % (42.0-75.0); PLATELET COUNT 138 X10^3/uL (150.0-450.0); RED BLOOD COUNT 3.92 X10^6/uL (4.7-6.0)
[2023-02-27 06:03] LABS: ALANINE AMINOTRANSFERASE 15 Units/L (12-78); ALKALINE PHOSPHATASE 65 Units/L (46-116); ASPARTATE AMINO TRANSFERASE 19 Units/L (15-37); BLOOD UREA NITROGEN 26 mg/dL (7-18); CALCIUM 9.1 mg/dL (8.5-10.1); CARBON DIOXIDE 28.4 mmol/L (21-32); CHLORIDE 105 mmol/L (98-107); COR CA(FOR HYPOALB) 9.9 mg/dL (8.5-10.1); CREATININE 1.67 mg/dL (0.70-1.30); GLUCOSE 110 mg/dL (65-99); POTASSIUM 4.6 mmol/L (3.5-5.1); SODIUM 140 mmol/L (136-145); TOTAL PROTEIN 6.3 g/dL (6.4-8.2); eGFR NON BLACK RACES 43 (>60)
[2023-02-27] MEDS: ZYLOPRIM PO SCH (09:02)
[2023-02-27] MEDS: LOVENOX INJ 40 MG SYR SC SCH (09:02)
[2023-02-27] MEDS: LIPITOR TAB 40 MG PO SCH (09:02)
[2023-02-27] MEDS: TOPROL XL PO SCH (09:02)
[2023-02-27] MEDS: PROTONIX TAB 40 MG PO SCH (09:02)
[2023-02-27] MEDS: PATIENT'S HOME MEDICATION PO SCH ×2 (09:02)
[2023-02-27] MEDS: MAXIPIME VIAL 1 GRAM 1 G in NS 50 ML IV 50 ML IV SCH (09:02)
[2023-02-27] MEDS ORDERED: SOLU-Medrol 40 MG VIAL IVP ONE (09:11)
[2023-02-27 09:12] VITALS: BP 130/61; PULSE 78; RESP 18; TEMP 98.5; O2SAT 96
== END 2023-02-27 11:57 | disposition home or self-care (01) | DRG 690 ==
LOC: MED/SURG 19:30
PROVIDERS: ADMIT Internal Medicine; ATTEND Internal Medicine
DX: Z85.528 Personal history of other malignant neoplasm of kidney; E03.8 Other specified hypothyroidism; M25.562 Pain in left knee; B96.89 Other specified bacterial agents as the cause of diseases classified elsewhere; Z90.5 Acquired absence of kidney; M19.90 Unspecified osteoarthritis, unspecified site; N39.0 Urinary tract infection, site not specified; Z85.51 Personal history of malignant neoplasm of bladder; Z85.46 Personal history of malignant neoplasm of prostate; Z16.39 Resistance to other specified antimicrobial drug